=== PATIENT | female | born 1985 | race Caucasian/White ===

== ENCOUNTER 2018-06-06 10:48 | Emergency (ER) | payer OTHER ==
[2018-06-06 10:58] VITALS: BP 127/85; PULSE 97; RESP 18; TEMP 98.2; O2SAT 98
--- NOTE | 2018-06-06 11:55 | ED PDOC ---
Arrival/HPI - General Chief Complaint: Upper Extremity Problem/Injury Historian: Patient - History of Present Illness Narrative History of Present Illness (Text): 06/06/18 11:52 32yo female with no pmhx who present with complaint of right elbow pain s/p t rauma 3days ago. States she injured her elbow when she fell. Came to ED today for the persistent pain. Did not take any medication for the pain. Denies any other complaint. Denies focal weakness, paresthesia. Past Medical History - Travel History Have you recently traveled outside [place] w/in the past 3 mons?: Yes - Psychiatric Hx Substance Use: No Family/Social History - Physician Review Nursing Documentation Reviewed: Yes Family/Social History: Unknown Family HX Smoking Status: Never Smoked Hx Alcohol Use: No Hx Substance Use: No Allergies/Home Meds Allergies/Adverse Reactions: Allergies No Known Allergies Allergy (Verified 06/06/18 10:58) Review of Systems - Physician Review All systems were reviewed & negative as marked: Yes - Review of Systems Constitutional: Normal Eyes: Normal ENT: Normal Respiratory: Normal Cardiovascular: Normal Gastrointestinal: Normal Genitourinary Female: Normal Musculoskeletal: Arthralgias (Right elbow pain) Skin: Normal Neurological: Normal Endocrine: Normal Hemo/Lymphatic: Normal Psychiatric: Normal Physical Exam Vital Signs Reviewed: Yes Vital Signs Temp Pulse Resp BP Pulse Ox 06/06/18 10:56 98.2 F 97 H 18 127/85 98 Temperature: Afebrile Blood Pressure: Normal Pulse: Regular Respiratory Rate: Normal Appearance: Positive for: Well-Appearing, Non-Toxic, Comfortable Pain Distress: None Mental Status: Positive for: Alert and Oriented X 3 - Systems Exam Head: Present: Atraumatic, Normocephalic Pupils: Present: PERRL Extroacular Muscles: Present: EOMI Conjunctiva: Present: Normal Mouth: Present: Moist Mucous Membranes Neck: Present: Normal Range of Motion Respiratory/Chest: Present: Clear to Auscultation, Good Air Exchange. No: Respiratory Distress, Accessory Muscle Use Cardiovascular: Present: Regular Rate and Rhythm, Normal S1, S2. No: Murmurs Abdomen: No: Tenderness, Distention, Peritoneal Signs Back: Present: Normal Inspection Upper Extremity: Present: Normal ROM, NORMAL PULSES, Tenderness (Focal tenderness over the right lateral elbow), Neurovascularly Intact. No: Cyanosis, Edema, Swelling, Deformity Lower Extremity: Present: Normal Inspection. No: Edema Neurological: Present: GCS=15, CN II-XII Intact, Speech Normal Skin: Present: Warm, Dry, Normal Color. No: Rashes Psychiatric: Present: Alert, Oriented x 3, Normal Insight, Normal Concentration Medical Decision Making ED Course and Treatment: 06/06/18 19:08 PT in ED for right elbow pain s/p trauma 3days ago. Right elbow xray - No acute fracture/dislocation. Result was DW the pt. She was DC home with ibuprofen 600mg for pain and referred to her PMD - RAD Interpretation Radiology Orders: 06/06/18 11:07 ELBOW RIGHT 3 VIEWS ROUTINE [RAD] Stat - Medication Orders Current Medication Orders: Discontinued Medications Ibuprofen (Motrin Tab) 600 mg PO STAT STA Stop: 06/06/18 11:09 Last Admin: 06/06/18 11:15 Dose: 600 mg MAR Pain/Vitals Document 06/06/18 11:15 EQ (Rec: 06/06/18 11:15 [place] [facility] [id number] Pain Reassessment Is This A Pain ReAssessment? No Sleep Is patient sleeping during reassessment? No Presence of Pain Presence of Pain Yes Disposition/Present on Arrival - Present on Arrival Any Indicators Present on Arrival: No History of DVT/PE: No History of Uncontrolled Diabetes: No Urinary Catheter: No History of Decub. Ulcer: No History Surgical Site Infection Following: None - Disposition Have Diagnosis and Disposition been Completed?: Yes Diagnosis: Elbow sprain Disposition: HOME/ ROUTINE Disposition Time: 12:30 Patient Plan: Discharge Condition: STABLE Discharge Instructions (ExitCare): Elbow Sprain (DC) Additional Instructions: Follow up with your Doctor/ortho Return to ED for any new or worsening symptoms Prescriptions: RX: Ibuprofen [Motrin Tab] 600 mg PO Q6 #20 tab Referrals: Naveen Leach MD [Staff Provider] - Follow up with primary Forms: [employer] (Frisian)
--- NOTE | 2018-06-06 12:38 | RAD ---
Date of service: 06/06/2018 PROCEDURE: Radiographs of the right elbow. HISTORY: elbow pain s/p trauma COMPARISON: No prior. FINDINGS: BONES: No acute fracture or destructive bony lesion identified. JOINTS: Normal. No osteoarthritis. SOFT TISSUES: Normal. JOINT EFFUSION: None. OTHER FINDINGS: None. IMPRESSION: Unremarkable radiographs of the right elbow.
== END 2018-06-06 12:45 | disposition home or self-care (01) ==
LOC: ED 10:48
DX: S53.401A Unspecified sprain of right elbow, initial encounter (principal); W18.30XA Fall on same level, unspecified, initial encounter; Y92.9 Unspecified place or not applicable

== ENCOUNTER 2018-10-30 09:00 | Emergency (ER) | payer OTHER ==
[2018-10-30 09:32] VITALS: TEMP 98; BMI 44.2
--- NOTE | 2018-10-30 10:02 | ED PDOC ---
Arrival/HPI - General Chief Complaint: Female Genitourinary Historian: Patient - History of Present Illness Narrative History of Present Illness (Text): 10/30/18 09:59 33 y/o female, no significant pmh, nkda, [employer] [id number], here request to have sonogram to check on her IUD location. Pt. stated that she has this IUD x 5 years, concerning about the location of the IUD as she is concern, no vaginal bleeding or discharge, no pelvic or abdominal pain, no night sweat, no rash, no dizziness, no other medical or psychological complaints, no other medical or psychological complaints. Past Medical History - Provider Review Nursing Documentation Reviewed: Yes - Cardiac Hx Cardiac Disorders: No - Pulmonary Hx Respiratory Disorders: No - Neurological Hx Neurological Disorder: No - HEENT Hx HEENT Disorder: No - Renal Hx Renal Disorder: No - Endocrine/Metabolic Hx Endocrine Disorders: No - Hematological/Oncological Hx Blood Disorders: Yes Hx Anemia: Yes - Integumentary Hx Dermatological Disorder: No - Musculoskeletal/Rheumatological Hx Musculoskeletal Disorders: No - Gastrointestinal Hx Gastrointestinal Disorders: No - Genitourinary/Gynecological Hx Genitourinary Disorders: No - Psychiatric Hx Psychophysiologic Disorder: No Hx Substance Use: No Family/Social History - Physician Review Nursing Documentation Reviewed: Yes Family/Social History: Unknown Family HX Smoking Status: Never Smoked Hx Alcohol Use: No Hx Substance Use: No Allergies/Home Meds Allergies/Adverse Reactions: Allergies No Known Allergies Allergy (Verified 10/30/18 10:00) Review of Systems - Review of Systems Constitutional: absent: Fatigue, Fevers Eyes: absent: Vision Changes ENT: absent: Hearing Changes Respiratory: absent: SOB, Cough, Sputum Cardiovascular: absent: Chest Pain Gastrointestinal: absent: Abdominal Pain, Diarrhea, Nausea, Vomiting Musculoskeletal: absent: Arthralgias, Back Pain Skin: absent: Rash, Pruritis Neurological: absent: Headache, Dizziness Psychiatric: absent: Anxiety, Depression, Suicidal Ideation Physical Exam Vital Signs Reviewed: Yes Vital Signs Temp Pulse Resp BP Pulse Ox 10/30/18 09:32 98.0 F 95 H 17 129/84 98 Temperature: Afebrile Blood Pressure: Normal Pulse: Regular Respiratory Rate: Normal Appearance: Positive for: Well-Appearing, Non-Toxic, Comfortable Pain Distress: None Mental Status: Positive for: Alert and Oriented X 3 - Systems Exam Head: Present: Atraumatic, Normocephalic Pupils: Present: PERRL Extroacular Muscles: Present: EOMI Conjunctiva: Present: Normal Mouth: Present: Moist Mucous Membranes Neck: Present: Normal Range of Motion Respiratory/Chest: Present: Clear to Auscultation, Good Air Exchange. No: Respiratory Distress, Accessory Muscle Use Cardiovascular: Present: Regular Rate and Rhythm, Normal S1, S2. No: Murmurs Abdomen: No: Tenderness, Distention, Peritoneal Signs Genitourinary/Pelvic Exam: Present: Other (Pt. declined) Back: Present: Normal Inspection Upper Extremity: Present: Normal Inspection. No: Cyanosis, Edema Lower Extremity: Present: Normal Inspection. No: Edema Neurological: Present: GCS=15, CN II-XII Intact, Speech Normal Skin: Present: Warm, Dry, Normal Color. No: Rashes Psychiatric: Present: Alert, Oriented x 3, Normal Insight, Normal Concentration Medical Decision Making ED Course and Treatment: 10/30/18 10:01 -Urine hcg -sonogram -UA -Pt. refused pelvic exam, only agreed to the sonogram as she has no pain/discharge. -Observe and reassess 10/30/18 14:28 -Urine hcg is negative -UA show mild UTI -Transvaginal sonogram 2.3 centimeter simple cyst in left ovary. Intrauterine device in appropriate position. -Pt. has no pain or vaginal discharge, request to be discharged home. -Discharge home with macrobid, education on follow up with your own pmd and obgyn within 2 days, return to the ER for any new or worsening signs or symptoms. - RAD Interpretation Radiology Orders: 10/30/18 09:59 TRANSVAGINAL [US] Stat Date of service: 10/30/2018 PROCEDURE: HISTORY: IUD, discomfort, displaced IUD? COMPARISON: TECHNIQUE: FINDINGS: The uterus measures 10.4 x 5.5 x 6.5 centimeters. The endometrium measures 5 millimeters intrauterine device is in place in appropriate position. The right ovary measures 3.6 x 3.7 centimeters. The left arm measures 3.3 x 3.6 centimeters. There is a 2.3 centimeter left ovarian cyst. Additional smaller bilateral follicles are observed. There is no free fluid the pelvis. IMPRESSION: 2.3 centimeter simple cyst in left ovary. Intrauterine device in appropriate position. Senior [employer] Developer: Radiologist - PA / FAMILY CASEWORKER / Resident Statement MD/DO has reviewed & agrees with the documentation as recorded. Disposition/Present on Arrival - Present on Arrival Any Indicators Present on Arrival: No History of DVT/PE: No History of Uncontrolled Diabetes: No Urinary Catheter: No History of Decub. Ulcer: No History Surgical Site Infection Following: None - Disposition Have Diagnosis and Disposition been Completed?: Yes Diagnosis: IUD (intrauterine device) in place, UTI (urinary tract infection) Disposition: HOME/ ROUTINE Disposition Time: 14:28 Patient Plan: Discharge Condition: GOOD Additional Instructions: -Discharge home with macrobid, education on follow up with your own pmd and obgyn within 2 days, return to the ER for any new or worsening signs or symptoms. Prescriptions: Nitrofurantoin Macrocrystals [Macrobid] 100 mg PO BID #20 cap Referrals: Radha Thapa MD [Staff Provider] - Follow up with primary Forms: [facility] (Luxembourger), WORK NOTE
[2018-10-30 10:17] LABS: URINE BILIRUBIN NEGATIVE (NEGATIVE); URINE BLOOD LARGE (NEGATIVE); URINE GLUCOSE (UA) NEGATIVE (NEGATIVE); URINE LEUKOCYTE ESTERASE TRACE Leu/uL (NEGATIVE); URINE PROTEIN NEGATIVE mg/dL (<30 mg/dL); URINE UROBILINOGEN 0.2 E.U./dL (<1 E.U./dL)
[2018-10-30 10:18] LABS: URINE APPEARANCE SL CLOUDY (CLEAR); URINE COLOR YELLOW (YELLOW)
[2018-10-30 10:39] LABS: URINE EPITHELIAL CELLS 0 - 2 /hpf (0-5); URINE WBC 0 - 2 /hpf (0-6)
--- NOTE | 2018-10-30 14:29 | US ---
Date of service: 10/30/2018 PROCEDURE: HISTORY: IUD, discomfort, displaced IUD? COMPARISON: TECHNIQUE: FINDINGS: The uterus measures 10.4 x 5.5 x 6.5 centimeters. The endometrium measures 5 millimeters intrauterine device is in place in appropriate position. The right ovary measures 3.6 x 3.7 centimeters. The left arm measures 3.3 x 3.6 centimeters. There is a 2.3 centimeter left ovarian cyst. Additional smaller bilateral follicles are observed. There is no free fluid the pelvis. IMPRESSION: 2.3 centimeter simple cyst in left ovary. Intrauterine device in appropriate position.
[2018-10-30 14:40] VITALS: BP 125/83; PULSE 83; RESP 18; O2SAT 99
== END 2018-10-30 14:43 | disposition home or self-care (01) ==
LOC: ED 09:00
DX: Z30.431 Encounter for routine checking of intrauterine contraceptive device (principal); N39.0 Urinary tract infection, site not specified